=== PATIENT | female | born 1995 | race African-American/Black ===

== ENCOUNTER 2025-02-20 12:03 | Emergency (ER) | payer BC ==
[~2025-02-20] VITALS: Ht 162.6 cm; Wt 49.0 kg
[2025-02-20 13:22] LABS: PLATELET COUNT (AUTO) 375 K/uL (150-450); RED BLOOD CELL COUNT(AUTO) 4.38 MIL/uL (4.0-5.2); RED CELL DISTRIBUTION WIDTH 13.1 % (11.5-15.0); WHITE BLOOD COUNT (AUTO) 6.3 K/uL (4.3-11.0)
[2025-02-20 13:28] LABS: CALCIUM, SERUM 9.2 mg/dL (8.5-10.1); CREATININE 0.9 mg/dL (0.6-1.3); SODIUM SERUM 140.0 mmol/L (136-145); UREA NITROGEN, BLOOD 10.0 mg/dL (7-18)
[2025-02-20 13:33] LABS: APPEARANCE,URINE CLEAR (CLEAR); BLOOD, URINE 3+ Ery/uL (NEGATIVE); LEUKOCYTE ESTERASE ,URINE NEGATIVE (NEGATIVE); NITRITE, URINE NEGATIVE (NEGATIVE); UGLUCOSE NEGATIVE (NEGATIVE)
[2025-02-20 13:34] LABS: ASPARTATE AMINOTRANSFERASE 15.0 U/L (15-37); TOTAL PROTEIN, SERUM 8.0 g/dL (6.4-8.2)
[2025-02-20 13:36] LABS: PREGNANCY TEST URINE QUAL POSITIVE (NEGATIVE)
[2025-02-20 13:37] LABS: INR 0.99 (0.91-1.10)
[2025-02-20 13:39] LABS: ADD URINE CULTURE YES; SQUAMOUS EPITHELIAL CELL,UR Moderate /HPF (None Seen)
[2025-02-20] MEDS ORDERED: NITR100C6 PO (13:52)
[2025-02-20] MEDS: NITROFURANTOIN/MONOHYDRATE MACROCRYSTALS 100 MG CAPSULE PO ONE (14:10)
[2025-02-20 16:20] VITALS: BP 103/72; TEMP 98; O2SAT 100
== END 2025-02-20 16:21 | disposition home or self-care (01) ==
LOC: ER 12:03
DX: O46.91 Antepartum hemorrhage, unspecified, first trimester (principal); Z3A.01 Less than 8 weeks gestation of pregnancy
CPT/HCPCS: 36415; 76856-TC; 80048-TC; 80076-TC; 81001; 83690-TC; 84702-TC; 84703-TC; 85025-TC; 85730-TC; 87086-TC